=== PATIENT | male | born 1935 | race African-American/Black ===

== ENCOUNTER 2017-07-14 20:24 | Emergency (ER) | payer OTHER ==
[~2017-07-14] VITALS: Ht 182.9 cm; Wt 113.6 kg
[~2017-07-14 20:24] MED LIST: AMLO-512 PO; ASPI81 PO; ATOR10TA84 PO; CARV25 PO; CITA20TA9 PO; FURO20 PO; ISOS30TA6 PO; KDUR20 PO; LEVE250T55 PO; LISI-662 PO; MEMA5 PO; NITR.4 SL; PANT40TA25 PO; SENN-31 PO; TAMS0.4C32 PO
[2017-07-14] MEDS ORDERED: LACT30L PO (21:14)
[2017-07-14] MEDS ORDERED: SERT50TA12 PO (21:14)
[2017-07-14] MEDS ORDERED: CLON1PAT12 TD (21:14)
[2017-07-14] MEDS ORDERED: MIRALAX PO (21:14)
[2017-07-14] MEDS ORDERED: HYDR-2924 PO (21:14)
[2017-07-14] MEDS ORDERED: LEVE250T55 PO (21:14)
[2017-07-14] MEDS ORDERED: NIFE90TA38 PO (21:14)
[2017-07-14] MEDS ORDERED: MEMA5 PO (21:14)
[2017-07-14] MEDS ORDERED: QUET25TA PO (21:14)
[2017-07-14] MEDS ORDERED: METO1TAB41 PO (21:14)
[2017-07-14] MEDS ORDERED: ASPI-1182 PO (21:14)
[2017-07-14 21:25] LABS: ANION GAP 10 mmol/L (8-16); CALCIUM, TOTAL 8.4 mg/dL (8.8-10.5); CARBON DIOXIDE 26 mmol/L (22-29); CHLORIDE 101 mmol/L (98-107); CREATININE 1.16 mg/dL (0.60-1.30); GLOMERULAR FILTR. RATE CALC > 60 mL/min (>60); POTASSIUM 3.1 mmol/L (3.5-5.1); SODIUM SERUM 137 mmol/L (136-145); UREA NITROGEN, BLOOD 9 mg/dL (7-18)
[2017-07-14 21:26] LABS: BASOPHILS # (AUTO) 0.01 K/uL (0.00-0.20); BASOPHILS % (AUTO) 0.1 % (0.0-2.0); EOSINOPHILS # (AUTO) 0.11 K/uL (0.00-0.70); EOSINOPHILS % (AUTO) 1.68 % (1.0-6.0); HEMATOCRIT 44.4 % (41-53); HEMOGLOBIN 14.2 g/dL (13.5-17.5); LYMPHOCYTES # (AUTO) 1.3 K/uL (1.0-4.8); LYMPHOCYTES % (AUTO) 20.5 % (22.0-44.0); MEAN CORPUSCULAR HEMOGLOBIN 29.9 pg (26.0-34.0); MEAN CORPUSCULAR VOLUME 93 fL (80-100); MONOCYTES # (AUTO) 0.4 K/uL (0.1-1.0); MONOCYTES % (AUTO) 5.9 % (2.0-9.0); NEUTROPHILS # (AUTO) 4.6 K/uL (1.8-7.7); NEUTROPHILS % (AUTO) 71.9 % (40.0-70.0); PLATELET COUNT (AUTO) 200 K/uL (150-450); RED BLOOD CELL COUNT(AUTO) 4.75 MIL/uL (4.50-5.90); RED CELL DISTRIBUTION WIDTH 14.1 % (11.5-14.5); WHITE BLOOD COUNT (AUTO) 6.4 K/uL (4.5-11.0)
[2017-07-14 21:32] LABS: ALANINE AMINOTRANSFERASE 26 U/L (12-78); ASPARTATE AMINOTRANSFERASE 21 U/L (15-37); BILIRUBIN,TOTAL 1.3 mg/dL (0.1-1.0)
[2017-07-14 22:28] LABS: ADD UA MICROSCOPIC YES; APPEARANCE,URINE CLEAR (CLEAR); GLUCOSE, URINE (UA) NEGATIVE (NEGATIVE); KETONES,URINE NEGATIVE (NEGATIVE); LEUKOCYTE ESTERASE ,URINE NEGATIVE (NEGATIVE); OCCULT BLOOD,URINE NEGATIVE (NEGATIVE); PH,URINE 7.5 (5.0-8.0); PROTEIN,URINE SEE CONFIRM (NEGATIVE)
[2017-07-14 22:38] LABS: SULFOSALICYLIC ACID,URINE 3+ (Negative)
[2017-07-14 22:39] LABS: SQUAMOUS EPITHELIAL CELL,UR Few /LPF (None Seen)
[2017-07-14 22:40] LABS: RBC,URINE 0-2 /HPF (0-2); WBC,URINE 0-2 /HPF (0-5)
[2017-07-14] MEDS ORDERED: POTASSIUM CHLORIDE 10% 40 MEQ/30 ML LIQUID UDCUP PO ONE (23:30)
[2017-07-15 01:02] VITALS: BP 155/84
== END 2017-07-15 01:28 | disposition short-term general hospital (02) ==
LOC: EMS 20:26
DX: F29 Unspecified psychosis not due to a substance or known physiological condition (principal); E87.6 Hypokalemia; I11.0 Hypertensive heart disease with heart failure; I50.9 Heart failure, unspecified; E78.00 Pure hypercholesterolemia, unspecified; Z88.6 Allergy status to analgesic agent; Z79.82 Long term (current) use of aspirin
CPT/HCPCS: 36415; 80053; 80307; 81001; 85025; 99285; G0480